=== PATIENT | female | born 1970 | race Native Hawaiian/Other Pacific Islander ===

== ENCOUNTER 2019-04-23 14:47 | Emergency (ER) | payer OTHER ==
[~2019-04-23] VITALS: Ht 157.5 cm; Wt 83.9 kg
[2019-04-23 15:15] VITALS: TEMP 98.7
[2019-04-23 17:38] VITALS: BP 120/84
== END 2019-04-23 17:38 | disposition home or self-care (01) ==
LOC: ED 14:47
DX: J06.9 Acute upper respiratory infection, unspecified (principal); B34.9 Viral infection, unspecified; F17.210 Nicotine dependence, cigarettes, uncomplicated
CPT/HCPCS: 87502; 87651; 99283

== ENCOUNTER 2019-05-22 15:46 | Emergency (ER) | payer OTHER ==
[~2019-05-22] VITALS: Ht 157.5 cm; Wt 89.4 kg
[2019-05-22 17:40] VITALS: BP 144/91; TEMP 99.1
== END 2019-05-22 17:40 | disposition home or self-care (01) ==
LOC: ED 15:46
DX: J06.9 Acute upper respiratory infection, unspecified (principal); F17.210 Nicotine dependence, cigarettes, uncomplicated
CPT/HCPCS: 87502; 87651; 99283

== ENCOUNTER 2022-02-10 12:58 | Outpatient (CLI) | payer OTHER | END 2022-02-10 19:36 | disposition home or self-care (01) | LOC: CT 12:58 | PROVIDERS: ATTEND Family Medicine | DX: Z12.31 Encounter for screening mammogram for malignant neoplasm of breast (principal); F17.200 Nicotine dependence, unspecified, uncomplicated; Z13.6 Encounter for screening for cardiovascular disorders ==

== ENCOUNTER 2022-03-24 19:13 | Emergency (ER) | payer OTHER ==
[~2022-03-24] VITALS: Ht 157.5 cm; Wt 89.4 kg
[2022-03-24 20:40] VITALS: BP 135/93; TEMP 96.8
== END 2022-03-24 20:40 | disposition home or self-care (01) ==
LOC: ED 19:13
DX: K02.9 Dental caries, unspecified (principal)
CPT/HCPCS: 96372; 99282; 99284; J0696

== ENCOUNTER 2022-03-31 10:26 | Emergency (ER) | payer OTHER ==
[~2022-03-31] VITALS: Ht 154.9 cm; Wt 89.4 kg
[2022-03-31 10:33] VITALS: TEMP 98.2
[2022-03-31 11:26] LABS: PLATELET COUNT 285 K/uL (152-353)
[2022-03-31 11:37] LABS: POTASSIUM 4.3 mmol/L (3.6-5.2)
[2022-03-31 11:56] LABS: PARTIAL THROMBOPLASTIN TIME 26.4 SECONDS (24.5-33.6)
[2022-03-31 14:25] VITALS: BP 166/94
== END 2022-03-31 15:24 | disposition short-term general hospital (02) ==
LOC: ED 10:26
PROVIDERS: Emergency Medicine Emergency Medical Services
DX: I63.9 Cerebral infarction, unspecified (principal); I10 Essential (primary) hypertension
CPT/HCPCS: 80053; 81000; 81025; 83735; 84484; 85027; 85610; 85730; 93005; 96360; 96361; 96374; 96375; 96376; 99285; J2270; J2405

== ENCOUNTER 2022-04-11 21:50 | Observation (INO) | payer OTHER ==
[~2022-04-11] VITALS: Ht 157.5 cm; Wt 87.3 kg
[2022-04-11 21:50] VITALS: BP 129/92; TEMP 97.4
[~2022-04-11 21:50] MED LIST: AMOX875T8 PO
[2022-04-11 22:07] LABS: PLATELET COUNT 382 K/uL (152-353)
[2022-04-11 22:16] LABS: POTASSIUM 3.2 mmol/L (3.6-5.2)
[2022-04-11 23:22] VITALS: BP 123/75
[2022-04-12 04:00] VITALS: BP 131/76; TEMP 98.4
[2022-04-12 04:38] VITALS: BP 129/89; TEMP 97.7; Ht 157.5 cm; Wt 87.3 kg
[2022-04-12 04:57] LABS: PLATELET COUNT 315 K/uL (152-353)
[2022-04-12 05:38] LABS: POTASSIUM 3.6 mmol/L (3.6-5.2)
[2022-04-12 08:00] VITALS: BP 109/76; TEMP 98.4
[2022-04-12] MEDS ORDERED: HYDR10TA47 PO (11:16)
[2022-04-12] MEDS ORDERED: LISINOPRIL & HCTZ PO (11:19)
[2022-04-12 12:00] VITALS: BP 99/54; TEMP 98.2
[2022-04-12] MEDS ORDERED: PANTOPRAZOLE 40MG TA PO (12:53)
[2022-04-12] MEDS ORDERED: MEDROL DOSEPAK4 MG PO (12:54)
[2022-04-12] MEDS ORDERED: AZIT250T3 PO (12:56)
[2022-04-12] MEDS ORDERED: WELLBUTRIN150 MG PO (12:56)
[2022-04-12] MEDS ORDERED: ALBU90AE13 INH (12:58)
== END 2022-04-12 15:21 | disposition home or self-care (01) ==
LOC: ED 21:50 → MED/SURG 23:43
PROVIDERS: ADMIT Family Medicine; ATTEND Internal Medicine
DX: J44.1 Chronic obstructive pulmonary disease with (acute) exacerbation (principal); Z72.0 Tobacco use; I10 Essential (primary) hypertension; E87.6 Hypokalemia; E78.49 Other hyperlipidemia; K21.9 Gastro-esophageal reflux disease without esophagitis; R00.0 Tachycardia, unspecified; R06.02 Shortness of breath
CPT/HCPCS: 36415; 36600; 80053; 82150; 82550; 82805; 83690; 84484; 85027; 85379; 87635; 90686; 93005; 94664; 94667; 94760; 99220; 99284; G0378; J0456; J0696; J1100; J2920; U0003

== ENCOUNTER 2022-04-22 15:13 | Emergency (ER) | payer OTHER ==
[~2022-04-22] VITALS: Ht 157.5 cm; Wt 86.6 kg
[~2022-04-22 15:13] MED LIST changes: +ALBU90AE13 INH; +AZIT250T3 PO; +HYDR10TA47 PO; +LISINOPRIL & HCTZ PO; +MEDROL DOSEPAK4 MG PO; +PANTOPRAZOLE 40MG TA PO; +WELLBUTRIN150 MG PO
[2022-04-22 15:45] VITALS: TEMP 98.7
[2022-04-22 17:23] LABS: POTASSIUM 3.6 mmol/L (3.6-5.2)
[2022-04-22 18:18] VITALS: BP 104/71
== END 2022-04-22 18:20 | disposition home or self-care (01) ==
LOC: ED 15:13
PROVIDERS: Emergency Medicine
DX: R09.89 Other specified symptoms and signs involving the circulatory and respiratory systems (principal)
CPT/HCPCS: 80053; 96372; 99283; J1610; Q9963

== ENCOUNTER 2022-06-25 10:19 | Day surgery (SDC) | payer OTHER ==
[~2022-06-25] VITALS: Ht 154.9 cm; Wt 68.0 kg
== END 2022-06-25 12:55 | disposition home or self-care (01) ==
LOC: OR 10:19
PROVIDERS: ATTEND Internal Medicine Gastroenterology
PROC: 0DB68ZX Excision of Stomach, Via Natural or Artificial Opening Endoscopic, Diagnostic (ICD-10-PCS; principal; 2022-06-25)
PROC: 0DB88ZX Excision of Small Intestine, Via Natural or Artificial Opening Endoscopic, Diagnostic (ICD-10-PCS; 2022-06-25)
PROC: 0D758ZZ Dilation of Esophagus, Via Natural or Artificial Opening Endoscopic (ICD-10-PCS; 2022-06-25)
DX: K22.2 Esophageal obstruction (principal); K29.00 Acute gastritis without bleeding; K21.00 Gastro-esophageal reflux disease with esophagitis, without bleeding; R13.19 Other dysphagia; R10.13 Epigastric pain; R11.2 Nausea with vomiting, unspecified
CPT/HCPCS: J2001; J2704; J7120